=== PATIENT | female | born 1955 | race Caucasian/White ===

== ENCOUNTER → 2017-06-17 | Outpatient (CLI) | payer MEDICAID ==
--- NOTE | 2017-06-18 08:59 | MM ---
Reason for exam: screening (asymptomatic). Last mammogram was performed 1 year and 1 month ago. History: Patient is postmenopausal. Family history of breast cancer in paternal aunt at age 45 and breast cancer in mother at age 72. Benign right mammotome panel of the right breast, February 15, 2013. Benign stereotactic core biopsy of the left breast, September 18, 2004. Core biopsy of the left breast. Took estrogen for 1 year beginning at age 47. Took progesterone for 1 year beginning at age 47. Took unspecified hormones for 3 years beginning at age 47. Physical Findings: A clinical breast exam by your physician is recommended on an annual basis and results should be correlated with mammographic findings. MG Screening Mammo w CAD Bilateral CC and MLO view(s) were taken. Prior study comparison: May 04, 2016, bilateral MG screening mammo w CAD. May 01, 2015, bilateral MG diagnostic mammo w CAD [facility]. The breast tissue is heterogeneously dense. This may lower the sensitivity of mammography. Finding: There are typically benign coarse, diffuse/scattered calcifications in the left breast. Previous mammotome biopsy in the right breast. There is a chronic nodularity bilaterally. No significant changes in finding since May 04, 2016 and May 01, 2015. ASSESSMENT: Benign, BI-RAD 2 RECOMMENDATION: Routine screening mammogram of both breasts in 1 year.
== END | disposition home or self-care (01) ==
LOC: RADMAMWWP 13:13
PROVIDERS: ATTEND Family Medicine
DX: Z12.31 Encounter for screening mammogram for malignant neoplasm of breast (principal); J32.9 Chronic sinusitis, unspecified

== ENCOUNTER 2019-09-12 10:10 | Emergency (ER) | payer MEDICAID ==
[2019-09-12 10:29] VITALS: TEMP 98
--- NOTE | 2019-09-12 12:18 | ED ---
General Adult HPI - General Chief complaint: Extremity Injury, Upper Stated complaint: hand & feet numbness/pain all over Time Seen by Provider: 09/12/19 11:00 Source: patient, RN notes reviewed Mode of arrival: ambulatory Limitations: no limitations - History of Present Illness Initial comments: This is a 63-year-old female who presents emergency Department complaining of chronic pain everywhere. Patient states his been ongoing for months. Patient states she has had MRIs she's done physical therapy she also is seeing a pain specialist. Patient also has problems with her feet and she has seen a manager security. Patient states she does not want to follow with podiatry says she does not follow the directions of the pain specialist and she does not like her primary medical care doctor. Patient states she wants to appear because no one is helping her. Patient states she has pain to her back pain to her hands and feet to the point where she told her she can't stand the pain anymore. When I'm speaking with the patient she appears in no distress whatsoever. Patient denies any chest pain difficulty breathing. Patient denies any recent fever chills or cough. Patient denies any headache patient denies lightheadedness or dizziness. Patient denies any recent injury or trauma. Patient states couple months ago she stepped backwards into a shelf and hit her in the middle of the back since then she's had x-rays and an MRI done showing any acute injury from trauma. Patient states she's been taking magnesium and she thinks the magnesium is causing her muscle problems - Related Data Home Medications Medication Instructions Recorded Confirmed Glucosam/Vik-Msm1/C/Taz/Bosw 1 tab PO DAILY 09/12/19 09/12/19 [Ozvwygngdhb-Pnifroiagjp-BCS Tb] Magnesium Oxide [Mag-Ox] 400 mg PO DAILY@1200 09/12/19 09/12/19 Allergies Allergy/AdvReac Type Severity Reaction Status Date / Time Penicillins Allergy Unknown Verified 09/12/19 11:17 STEROIDS Allergy Unknown Uncoded 09/12/19 11:17 Review of Systems ROS Statement: Those systems with pertinent positive or pertinent negative responses have been documented in the HPI. ROS Other: All systems not noted in ROS Statement are negative. Past Medical History Past Medical History: No Reported History History of Any Multi-Drug Resistant Organisms: None Reported Past Surgical History: No Surgical Hx Reported Past Psychological History: No Psychological Hx Reported Smoking Status: Never smoker Past Alcohol Use History: None Reported Past Drug Use History: None Reported General Exam - General Exam Comments Initial Comments: GENERAL: Patient is well-developed and well-nourished. Patient is nontoxic and well- hydrated and is in no distress. ENT: Neck is soft and supple. No significant lymphadenopathy is noted. Oropharynx is clear. Moist mucous membranes. Neck has full range of motion without eliciting any pain. EYES: The sclera were anicteric and conjunctiva were pink and moist. Extraocular movements were intact and pupils were equal round and reactive to light. Eyelids were unremarkable. PULMONARY: Unlabored respirations. Good breath sounds bilaterally. No audible rales rhonchi or wheezing was noted. CARDIOVASCULAR: There is a regular rate and rhythm without any murmurs gallops or rubs. ABDOMEN: Soft and nontender with normal bowel sounds. No palpable organomegaly was noted. There is no palpable pulsatile mass. SKIN: Skin is clear with no lesions or rashes and otherwise unremarkable. NEUROLOGIC: Patient is alert and oriented x3. Cranial nerves II through XII are grossly intact. Motor and sensory are also intact. Normal speech, volume and content. Symmetrical smile. MUSCULOSKELETAL: Normal extremities with adequate strength and full range of motion. No lower extremity swelling or edema. No calf tenderness. Patient has good DP pulses bilaterally. Patient has good capillary refill. Patient has no swelling of the legs no tenderness of the calves LYMPHATICS: No significant lymphadenopathy is noted PSYCHIATRIC: Patient is anxious. Limitations: no limitations Course Vital Signs 09/12/19 09/12/19 09/12/19 10:26 11:00 11:30 Temperature 98.0 F Pulse Rate 90 85 Respiratory 17 Rate Blood Pressure 122/65 127/77 120/57 O2 Sat by Pulse 97 97 98 Oximetry Medical Decision Making - Lab Data Result diagrams: 09/12/19 12:05 09/12/19 12:05 Lab Results 09/12/19 09/12/19 Range/Units 12:05 12:05 WBC 7.5 (3.8-10.6) k/uL RBC 4.34 (3.80-5.40) m/uL Hgb 13.2 (11.4-16.0) gm/dL Hct 39.4 (34.0-46.0) % MCV 90.8 (80.0-100.0) fL MCH 30.4 (25.0-35.0) pg MCHC 33.5 (31.0-37.0) g/dL RDW 13.0 (11.5-15.5) % Plt Count 334 (150-450) k/uL Neutrophils % 63 % Lymphocytes % 25 % Monocytes % 8 % Eosinophils % 1 % Basophils % 1 % Neutrophils # 4.7 (1.3-7.7) k/uL Lymphocytes # 1.9 (1.0-4.8) k/uL Monocytes # 0.6 (0-1.0) k/uL Eosinophils # 0.1 (0-0.7) k/uL Basophils # 0.0 (0-0.2) k/uL Sodium 135 L (137-145) mmol/L Potassium 3.9 (3.5-5.1) mmol/L Chloride 98 (98-107) mmol/L Carbon Dioxide 29 (22-30) mmol/L Anion Gap 8 mmol/L BUN 10 (7-17) mg/dL Creatinine 0.65 (0.52-1.04) mg/dL Est GFR (CKD-EPI)AfAm >90 (>60 ml/min/1.73 sqM) Est GFR (CKD-EPI)NonAf >90 (>60 ml/min/1.73 sqM) Glucose 82 (74-99) mg/dL Calcium 9.2 (8.4-10.2) mg/dL Magnesium 1.9 (1.6-2.3) mg/dL Total Bilirubin 0.4 (0.2-1.3) mg/dL AST 26 (14-36) U/L ALT 23 (9-52) U/L Alkaline Phosphatase 76 (38-126) U/L Creatine Kinase 86 (30-135) U/L Total Protein 7.7 (6.3-8.2) g/dL Albumin 4.4 (3.5-5.0) g/dL Disposition Clinical Impression: Anxiety, Chronic pain Disposition: HOME SELF-CARE Condition: Good Instructions (If sedation given, give patient instructions): Anxiety (ED) Additional Instructions: Patient should follow-up with her primary medical care doctor for further workup of these symptoms. Is patient prescribed a controlled substance at d/c from ED?: No Referrals: None,Stated [Primary Care Provider] - 1-2 days Time of Disposition: 12:46
[2019-09-12 12:24] LABS: Basophils % (A) 1 %; Eosinophils # (A) 0.1 k/uL (0-0.7); Eosinophils % (A) 1 %; HCT 39.4 % (34.0-46.0); HGB 13.2 gm/dL (11.4-16.0); Lymphocytes # (A) 1.9 k/uL (1.0-4.8); Lymphocytes % (A) 25 %; MCH 30.4 pg (25.0-35.0); MCHC 33.5 g/dL (31.0-37.0); MCV 90.8 fL (80.0-100.0); Mean Platelet Volume 5.6; Monocytes # (A) 0.6 k/uL (0-1.0); Monocytes % (A) 8 %; Neutrophils # (A) 4.7 k/uL (1.3-7.7); Neutrophils % (A) 63 %; Platelet Count 334 k/uL (150-450); RBC 4.34 m/uL (3.80-5.40); WBC 7.5 k/uL (3.8-10.6)
[2019-09-12 12:40] LABS: ALT 23 U/L (9-52); AST 26 U/L (14-36); African American GFR (CKD) >90 (>60 ml/min/1.73 sqM); Albumin 4.4 g/dL (3.5-5.0); Alkaline Phosphatase 76 U/L (38-126); Anion Gap 8 mmol/L; Blood Urea Nitrogen 10 mg/dL (7-17); Calcium 9.2 mg/dL (8.4-10.2); Carbon Dioxide 29 mmol/L (22-30); Chloride 98 mmol/L (98-107); Creatine Kinase 86 U/L (30-135); Glucose 82 mg/dL (74-99); Magnesium 1.9 mg/dL (1.6-2.3); Potassium 3.9 mmol/L (3.5-5.1); Sodium 135 mmol/L (137-145); Total Bilirubin 0.4 mg/dL (0.2-1.3); Total Protein 7.7 g/dL (6.3-8.2)
[2019-09-12 13:05] VITALS: BP 149/79; PULSE 78; RESP 18
== END 2019-09-12 13:05 | disposition home or self-care (01) ==
LOC: EC 10:10
DX: F41.9 Anxiety disorder, unspecified (principal); G89.29 Other chronic pain; M54.9 Dorsalgia, unspecified; M79.641 Pain in right hand; M79.642 Pain in left hand; M79.671 Pain in right foot; M79.672 Pain in left foot; Z88.0 Allergy status to penicillin; Z88.8 Allergy status to other drugs, medicaments and biological substances
CPT/HCPCS: 36415; 80053; 82550; 83735; 85025; 99283